=== PATIENT | male | born 1955 | race Hispanic/Latino ===

== ENCOUNTER 2022-09-29 17:20 | Emergency (ER) | payer MEDICARE ==
[~2022-09-29] VITALS: Ht 172.7 cm; Wt 65.8 kg
[2022-09-29 17:20] VITALS: O2SAT 98
[2022-09-29 18:24] LABS: CALCIUM 9.2 mg/dL (8.4-10.2); CREATININE, SERUM 1.43 mg/dL (0.72-1.25)
== END 2022-09-29 19:17 | disposition home or self-care (01) ==
LOC: ER 17:28
DX: E87.5 Hyperkalemia (principal); Z94.0 Kidney transplant status
CPT/HCPCS: 36415; 80048; 99284